=== PATIENT | female | born 1965 | race Caucasian/White ===

== ENCOUNTER → 2017-11-27 | Outpatient (CLI) | payer BC ==
--- NOTE | 2017-11-27 09:03 | DIAGNOSTIC IMAGING REPORT ---
L HIP UNILATERAL 2 VIEWS CLINICAL HISTORY: Left hip pain. COMPARISON: None FINDINGS: Alignment of the left hip is anatomic. There is no fracture or suspicious lesion. Joint space is preserved. There is mild osteophytosis. There is no evidence for avascular necrosis. IMPRESSION: 1. No fracture. 2. Preserved left hip joint space with mild osteophytosis. Electronically signed by: Esdras Zamora M.D. 11/27/2017 9:02 AM Dictated Date/Time: 11/27/2017 9:01 AM
--- NOTE | 2017-11-27 09:05 | DIAGNOSTIC IMAGING REPORT ---
SI JOINTS 3 OR MORE VIEWS HISTORY: 52 years-old Female PAIN IN LEFT HIP, LOW BACK PAIN acute left hip and left SI joint pain COMPARISON: Left hip radiographs of same day TECHNIQUE: 3 views of the SI joints FINDINGS: Mild marginal spurring and subchondral sclerosis of the SI joints. There is no acute fracture, subluxation or erosive changes to suggest erosive sacroiliitis. Mild degenerative changes of the imaged lower lumbar spine. Transitional lumbosacral anatomy is noted with pseudoarticulation of elongated bilateral L5 transverse processes with the sacral ala. No opaque foreign body. IMPRESSION: 1. Mild degenerative changes without acute bony abnormality. 2. Transitional lumbosacral anatomy. The above report was generated using voice recognition software. It may contain grammatical, syntax or spelling errors. Electronically signed by: Mohsen Fish M.D. 11/27/2017 9:04 AM Dictated Date/Time: 11/27/2017 9:02 AM
== END | disposition home or self-care (01) ==
LOC: C.RADBC 08:43
PROVIDERS: ATTEND Nurse Practitioner Family
DX: M25.552 Pain in left hip (principal); M54.5 Low back pain